=== PATIENT | female | born 1955 | race Two or more races ===

== ENCOUNTER 2024-07-14 18:03 | Inpatient (IN) | payer OTHER ==
[~2024-07-14] VITALS: Ht 165.1 cm; Wt 86.2 kg
[~2024-07-14 18:03] MED LIST: CEFADROXIL500 MG PO; CEFTIN250 MG PO; CELEBREX100 MG PO; OMEPRAZOLE20 MG PO; OMEPRAZOLE40 MG PO; PARAFON FORTE500 MG PO; PROTONIX40 MG PO; RANITIDINE HCL300 M1 PO; TRAMADOL HCL-AP1 TAB PO; ZANTAC150 MG PO
[2024-07-14] MEDS ORDERED: AMIODARONE HCL 50 MG/ML AMPUL IV ONE (18:30)
[2024-07-14] MEDS ORDERED: FUROsemide 40 MG/4 ML VIAL IV ONE (18:30)
[2024-07-14] MEDS ORDERED: IPRATROPIUM/ALBUTEROL SULFATE 3 ML AMPUL.NEB IH ONE (18:45)
[2024-07-14 18:54] LABS: HEMATOCRIT 43.5 % (36.0-45.00); HEMOGLOBIN 14.1 g/dL (12.0-15.00); MEAN CELL VOLUME 85.7 fL (80.00-100.00); MEAN CORPUSCULAR HEMOGLOBIN 27.9 pg (27.00-32.0); MEAN CORPUSCULAR HGB CONC 32.5 g/dl (32.0-36.0); PLATELET COUNT 267 K/uL (150-450); RED BLOOD COUNT 5.07 M/uL (4.00-6.00); RED CELL DISTRIBUTION WIDTH 14.9 % (11.5-14.5)
[2024-07-14] MEDS ORDERED: AMIODARONE HCL 900 MG in DEXTROSE 5 % IN WATER 500 ML IV SCH (19:00)
[2024-07-14 19:11] LABS: ABG PH 7.271 (7.35-7.45); ABG PO2 59.5 mmHg (80-100); ABG pCO2 53.3 mmHg (35-45); BASE EXCESS -3.6 mmol/l; SaO2 85.8 %; Tco2 25.6 mmol/l
[2024-07-14 19:12] LABS: allen test SATISFACTORY; mode ROOM AIR; o2 21 %; puncture site RADIAL RIGHT
[2024-07-14 19:15] LABS: INR 0.98; PARTIAL THROMBOPLASTIN TIME 23.8 SECONDS (22.0-34.0); PROTHROMBIN TIME 10.7 SECONDS (9.0-11.5)
[2024-07-14 19:19] LABS: BILIRUBIN TOTAL 0.24 mg/dL (0.3-1.2); CREATININE SERUM 0.96 mg/dL (0.55-1.02); GFR 58.15; GLOBULINA 4.1 G/DL (2.4-3.5); POTASSIUM 4.06 mEq/L (3.5-5.1); TOTAL PROTEIN 8.1 gm/dL (6.4-8.2)
[2024-07-14] MEDS ORDERED: ONDANSETRON HCL 2 MG/ML VIAL IV ONE (20:00)
[2024-07-14] MEDS ORDERED: PROPOFOL IV PUSH STA (20:04)
[2024-07-14] MEDS ORDERED: PIPERACILLIN/TAZOBACTAM SODIUM 3.375 GM in DEXTROSE 5 % IN WATER 100 ML IV ONE (20:15)
[2024-07-14 20:23] LABS: MAGNESIUM 2.1 mg/dL (1.8-2.4)
[2024-07-14 21:31] LABS: COVID-19 AG NEGATIVE (NEGATIVE)
[2024-07-14 21:32] LABS: INFLUENZA A AG NEGATIVE (NEGATIVE)
--- NOTE | 2024-07-14 22:01 | NUR ---
SE RECIBE PTE ALERTA Y ORIENTADA X3 LA CUAL LLEGA EN AMBULANCIA POR DIFICULTAD RESPIRATORIA. SATURANDO 84% CON N/C @ 4LT. PTE ES PASADA A CAMA EN AREA DE CRITICO EN DONDE SE CONECTA A MONITOR CARDIACO Y OXYMETRIA DE [place]. SE LE REALIZA EKG PARA QUE LO EVALUE EL DR RIVERS Y DR DONOHUE. SE CANALIZA A PTE POR PROTOCOLO DE AREA CRITICA, SE COLOCA H/L CON ANGIO #18 EN MANO IZQUIERDA POR EL CUAL SE LE COLOCA RAQUEL DE AMIODARONA PARA CORREGIR TAQUICARDIA VENTRICULAR Y SE LE COMIENZA DRIP DE AMIODARONA 900MG/500ML DE DW5 @ 33ML/HR POR LAS PRIMERAS 6 HORAS. SE PREPARA A PTE PARA ENTUBAR PTE ES ENTUBADA POR PERSONAL DE ANESTESIA ATEGAN A LAS ([id number]) CON TUBO 7.0. SE COMIENZA DRIP DE PROPOFOL PATO VEZ LA PRESION DE LA MISMA SE ESTABILIZA.
[2024-07-14 22:19] LABS: ABG PO2 271.2 mmHg (80-100); BASE EXCESS -5.7 mmol/l; BICARBONATE 26.6 mmol/l (23-25); SaO2 99.6 %; Tco2 29.3 mmol/l
[2024-07-14 22:43] LABS: ABG PH 7.094 (7.35-7.45); ABG pCO2 88.7 mmHg (35-45); allen test SATISFACTORY; mode MECHANI VENTILATOR; o2 100 %; puncture site RADIAL RIGHT
[2024-07-14 22:47] LABS: PH,URINE 5.5 (5.0-8.0); URINE APPEARANCE Clear; URINE BILIRRUBIN Negative (NEGATIVE); URINE BLOOD Small; URINE COLOR Yellow; URINE KETONE Negative (NEGATIVE); URINE LEUKOCYTE Negative; URINE NITRATE Negative; URINE UROBILINOGEN 0.2 E.U./dl
[2024-07-14 22:50] LABS: URINE BACTERIA 605.8 uL (0.0-1933); URINE EPITHELIAL CELLS 9.8 uL (0.0-38.8); URINE RBC 24.3 uL (0.0-20.8); URINE WBC 13.7 uL (0.0-23.2)
[2024-07-14 22:51] LABS: URINE CAST 0.73 uL (0.0-1.40); URINE GLUCOSE 500 MG/DL (NEGATIVE); URINE PROTEIN 100 (NEGATIVE)
[2024-07-15] MEDS ORDERED: IPRATROPIUM BROMIDE 0.5 MG/2.5 ML AMPUL.NEB IH SCH (01:18)
[2024-07-15] MEDS ORDERED: PANTOPRAZOLE SODIUM 40 MG/VIAL VIAL IV SCH (01:24)
[2024-07-15] MEDS ORDERED: ATORVASTATIN CALCIUM 40 MG TABLET PO SCH (01:25)
[2024-07-15] MEDS ORDERED: TICAGRELOR 90 MG TABLET PO SCH (01:26)
[2024-07-15] MEDS ORDERED: ENOXAPARIN SODIUM 80 MG/0.8 ML SYRINGE SUBCUTANEO SCH (01:27)
[2024-07-15] MEDS ORDERED: 0.9 % SODIUM CHLORIDE 1,000 ML IV SCH (01:30)
[2024-07-15] MEDS ORDERED: ACETAMINOPHEN 500 MG GEL..CAP PO PRN (01:30)
[2024-07-15] MEDS ORDERED: MEROPENEM 500 MG/VIAL VIAL IV SCH (02:00)
[2024-07-15] MEDS ORDERED: IPRATROPIUM BROMIDE 0.5 MG/2.5 ML AMPUL.NEB IH ONE (08:39)
[2024-07-15] MEDS ORDERED: PROPOFOL 100 ML IV SCH (10:45)
[2024-07-15 16:47] VITALS: BP 91/63; O2SAT 100
[2024-07-15] MEDS ORDERED: TICAGRELOR 90 MG TABLET PO ONE (16:58)
[2024-07-15 18:12] VITALS: BP 100/51; O2SAT 99
[2024-07-15 18:51] LABS: CHOL HDL RATIO 4.2 (0-5.0); TSH 1.24 uIU/mL (0.358-3.74)
[2024-07-15 20:44] VITALS: BP 96/56; O2SAT 99
[2024-07-15 22:30] VITALS: BP 97/62; O2SAT 99
[2024-07-15 23:00] VITALS: BP 121/69; O2SAT 100
[2024-07-16] VITALS (12 sets, daily range): BP systolic 101–130; BP diastolic 57–88; O2SAT 20–100
[2024-07-16 05:14] LABS: CHOL HDL RATIO 4.2 (0-5.0); TSH 2.54 uIU/mL (0.358-3.74)
[2024-07-16] MEDS ORDERED: NITROGLYCERIN IN 5 % DEXTROSE 50 MG/250 ML BOTTLE IV SCH (08:15)
[2024-07-16] MEDS ORDERED: NITROGLYCERIN IN 5 % DEXTROSE 250 ML IV SCH (08:30)
[2024-07-16 10:17] LABS: HEMOGLOBIN 11.3 g/dL (12.0-15.00); MEAN CELL VOLUME 82.8 fL (80.00-100.00); MEAN CORPUSCULAR HEMOGLOBIN 28.3 pg (27.00-32.0); MEAN CORPUSCULAR HGB CONC 34.2 g/dl (32.0-36.0); PLATELET COUNT 137 K/uL (150-450); RED BLOOD COUNT 3.99 M/uL (4.00-6.00); RED CELL DISTRIBUTION WIDTH 14.5 % (11.5-14.5)
[2024-07-16 10:48] LABS: ALBUMIN 2.9 gm/dL (3.4-5.0); BILIRUBIN TOTAL 0.54 mg/dL (0.3-1.2); CALCIUM 7.9 mg/dL (8.5-10.1); CREATININE SERUM 0.61 mg/dL (0.55-1.02); GFR 98.13; GLOBULINA 2.9 G/DL (2.4-3.5); POTASSIUM 3.38 mEq/L (3.5-5.1); TOTAL PROTEIN 5.8 gm/dL (6.4-8.2)
[2024-07-16] MEDS ORDERED: CHLORHEXIDINE GLUCONATE 15ML BRUSH KIT MM SCH (13:24)
[2024-07-16] MEDS ORDERED: POTASSIUM CHLORIDE IN WATER 40 MEQ/100 ML PIGGYBAG IV NR (14:00)
[2024-07-16 14:56] LABS: ABG PH 7.435 (7.35-7.45); ABG PO2 312.4 mmHg (80-100); ABG pCO2 35.4 mmHg (35-45); BASE EXCESS -0.4 mmol/l; BICARBONATE 23.3 mmol/l (23-25); SaO2 99.9 %; Tco2 24.3 mmol/l
[2024-07-16 14:58] LABS: allen test SATISFACTORY; mode MECHANI VENTILATOR; o2 100 %; puncture site RADIAL RIGHT
[2024-07-16 16:01] LABS: ABG PH 7.411 (7.35-7.45); ABG PO2 103.4 mmHg (80-100); ABG pCO2 38.9 mmHg (35-45); BASE EXCESS -0.2 mmol/l; BICARBONATE 24.2 mmol/l (23-25); Tco2 25.4 mmol/l
[2024-07-16] MEDS ORDERED: CARBOXYMETHYLCELL/GLYCERIN/PF 1 EACH DROPERETTE OP SCH (17:00)
[2024-07-16 18:36] LABS: allen test SATISFACTORY; mode MECHANI VENTILATOR; puncture site RADIAL RIGHT
[2024-07-16 18:39] LABS: o2 50 %
[2024-07-17] VITALS (14 sets, daily range): BP systolic 103–145; BP diastolic 60–97; O2SAT 98–100
[2024-07-17 08:44] LABS: ABG PH 7.396 (7.35-7.45); ABG PO2 159.8 mmHg (80-100); ABG pCO2 37.4 mmHg (35-45); BICARBONATE 22.4 mmol/l (23-25); SaO2 99.4 %; Tco2 23.6 mmol/l
[2024-07-17 13:12] LABS: allen test SATISFACTORY; mode MECHANI VENTILATOR; o2 40 %; puncture site RADIAL LEFT
[2024-07-18] VITALS (9 sets, daily range): BP systolic 97–155; BP diastolic 53–84; O2SAT 98–100
[2024-07-18] MEDS ORDERED: RACEPINEPHRINE HCL 0.5 ML AMPUL IH STA (11:09)
[2024-07-18 11:40] LABS: HEMATOCRIT 32.1 % (36.0-45.00); HEMOGLOBIN 11.1 g/dL (12.0-15.00); MEAN CELL VOLUME 82.5 fL (80.00-100.00); MEAN CORPUSCULAR HEMOGLOBIN 28.6 pg (27.00-32.0); MEAN CORPUSCULAR HGB CONC 34.6 g/dl (32.0-36.0); PLATELET COUNT 135 K/uL (150-450); RED BLOOD COUNT 3.89 M/uL (4.00-6.00); RED CELL DISTRIBUTION WIDTH 14.4 % (11.5-14.5)
[2024-07-18] MEDS ORDERED: PHENOL 177 ML BOTTLE MM PRN (12:00)
[2024-07-18 12:51] LABS: ALBUMIN 2.7 gm/dL (3.4-5.0); BILIRUBIN TOTAL 0.85 mg/dL (0.3-1.2); CREATININE SERUM 0.4 mg/dL (0.55-1.02); GFR 159.7; GLOBULINA 3.3 G/DL (2.4-3.5); POTASSIUM 3.63 mEq/L (3.5-5.1)
[2024-07-18 14:43] LABS: ABG PO2 138.1 mmHg (80-100); BASE EXCESS -0.2 mmol/l; BICARBONATE 24.2 mmol/l (23-25); SaO2 99.1 %; Tco2 25.4 mmol/l; allen test SATISFACTORY; o2 40 %; puncture site RADIAL RIGHT
[2024-07-18 14:44] LABS: mode MECHANI VENTILATOR
[2024-07-18 14:45] LABS: ABG PH 7.448 (7.35-7.45); ABG PO2 90.7 mmHg (80-100); ABG pCO2 34.2 mmHg (35-45); BASE EXCESS -0.2 mmol/l; BICARBONATE 23.1 mmol/l (23-25); SaO2 97.4 %; Tco2 24.2 mmol/l; allen test SATISFACTORY; mode NASAL CANNULA; o2 36 %; puncture site RADIAL LEFT
[2024-07-18 14:46] LABS: ABG PH 7.378 (7.35-7.45); ABG pCO2 42.9 mmHg (35-45); BASE EXCESS -0.6 mmol/l; SaO2 99.1 %
[2024-07-18 14:47] LABS: BICARBONATE 24.7 mmol/l (23-25); allen test SATISFACTORY; o2 40 %; puncture site RADIAL RIGHT
[2024-07-18 14:48] LABS: mode MECHANI VENTILATOR
[2024-07-18] MEDS ORDERED: CEFAZOLIN SODIUM 2,000 MG in 0.9 % SODIUM CHLORIDE 100 ML IV SCH (17:00)
[2024-07-19 04:00] VITALS: BP 124/58; O2SAT 99
[2024-07-19 07:30] VITALS: BP 112/91; O2SAT 100
[2024-07-19] MEDS ORDERED: SPIRONOLACTONE 25 MG TABLET PO SCH (09:00)
[2024-07-19] MEDS ORDERED: FUROsemide 20 MG/2 ML VIAL IV SCH (09:00)
[2024-07-19] MEDS ORDERED: CARVEDILOL 3.125 MG TABLET PO SCH (09:00)
[2024-07-19] MEDS ORDERED: CHLORHEXIDINE GLUCONATE 120 ML BOTTLE TOP ONE (10:24)
[2024-07-19 12:00] VITALS: BP 132/96; O2SAT 100
[2024-07-19] MEDS ORDERED: LACTOBACILLUS ACIDOPHILUS 1 CAP CAP PO SCH (13:00)
[2024-07-19 16:07] VITALS: BP 128/88; O2SAT 100
[2024-07-19 20:18] VITALS: BP 126/87; O2SAT 100
[2024-07-19] MEDS ORDERED: CLONAZEPAM 0.5 MG TABLET PO SCH (21:00)
[2024-07-19] MEDS ORDERED: LOPERAMIDE HCL 2 MG CAPSULE PO ONE (22:00)
[2024-07-19 23:14] VITALS: BP 97/76; O2SAT 98
[2024-07-20 04:00] VITALS: BP 118/60; O2SAT 97
[2024-07-20 08:00] VITALS: BP 148/83; O2SAT 98
[2024-07-20 12:00] VITALS: BP 116/86; O2SAT 100
[2024-07-20 16:00] VITALS: BP 112/71; O2SAT 97
[2024-07-20 20:00] VITALS: BP 150/75; O2SAT 98
[2024-07-20 23:31] VITALS: BP 108/82; O2SAT 99
[2024-07-21 03:59] VITALS: BP 107/62; O2SAT 98
[2024-07-21 12:00] VITALS: BP 126/70; O2SAT 98
[2024-07-21 15:57] VITALS: BP 113/78; O2SAT 98
[2024-07-22] VITALS (7 sets, daily range): BP systolic 99–126; BP diastolic 56–79; O2SAT 94–99
[2024-07-23] VITALS (9 sets, daily range): BP systolic 104–108; BP diastolic 58–70; O2SAT 93–98
[2024-07-24] VITALS (7 sets, daily range): BP systolic 92–115; BP diastolic 58–76; O2SAT 93–100
[2024-07-24 07:03] LABS: BASO % 0.4 % (0.1-1.2); EOS # 0.18 (0.04-0.54); EOS % 2.3 % (0.7-7.0); HEMATOCRIT 38.2 % (34.1-44.9); HEMOGLOBIN 12.7 g/dL (11.2-15.7); LYMPH # 2.41 (1.18-3.74); LYMPH % 31.1 % (19.3-53.1); MEAN CORPUSCULAR HEMOGLOBIN 27.1 pg (25.6-32.2); MONO # 0.75 (0.24-0.82); MONO % 9.7 % (4.7-12.5); NEUT # 4.34 (1.56-6.13); PLATELET COUNT 276 K/uL (163-369); RED BLOOD COUNT 4.69 M/uL (3.93-5.22); RED CELL DISTRIBUTION WIDTH 13.1 % (11.6-14.4)
[2024-07-24 07:40] LABS: CALCIUM 8.6 mg/dL (8.5-10.1); CREATININE SERUM 0.6 mg/dL (0.55-1.02); GFR 100.02
[2024-07-24] MEDS ORDERED: CEFAZOLIN SODIUM 1,000 MG VIAL ONE (08:12)
[2024-07-24] MEDS ORDERED: ORPHENADRINE CITRATE 30 MG/ML AMPUL IV STA (08:22)
[2024-07-24 08:23] LABS: POTASSIUM 2.87 mEq/L (3.5-5.1)
[2024-07-24 14:30] LABS: ABG PH 7.493 (7.35-7.45); ABG PO2 77.4 mmHg (80-100); ABG pCO2 42.6 mmHg (35-45); BASE EXCESS 7.8 mmol/l; BICARBONATE 31.9 mmol/l (23-25); SaO2 96.7 %; Tco2 33.2 mmol/l; allen test SATISFACTORY; mode ROOM AIR; o2 21 %; puncture site RADIAL RIGHT
[2024-07-24] MEDS ORDERED: ORPHENADRINE CITRATE 30 MG/ML AMPUL IV PRN (21:00)
[2024-07-25 01:48] VITALS: O2SAT 94
[2024-07-25 02:34] VITALS: BP 100/68; O2SAT 95
[2024-07-25 08:24] VITALS: BP 90/60
[2024-07-25 13:08] VITALS: O2SAT 90
[2024-07-25] MEDS ORDERED: POTASSIUM CHLORIDE IN WATER 100 ML IV NR (16:15)
[2024-07-25] MEDS ORDERED: MAGNESIUM SULFATE IN WATER 50 ML IV NR (16:15)
[2024-07-25 17:43] VITALS: BP 104/60
[2024-07-25 21:00] VITALS: O2SAT 90
[2024-07-26 01:47] VITALS: BP 99/62; O2SAT 94
[2024-07-26 03:18] VITALS: O2SAT 95
[2024-07-26 05:44] VITALS: O2SAT 97
[2024-07-26 07:46] LABS: CALCIUM 8.7 mg/dL (8.5-10.1); CREATININE SERUM 0.64 mg/dL (0.55-1.02); GFR 92.84; POTASSIUM 3.35 mEq/L (3.5-5.1)
[2024-07-26 08:34] VITALS: BP 103/60; O2SAT 96
[2024-07-26] MEDS ORDERED: CARVEDILOL3.125 MG PO (09:33)
[2024-07-26] MEDS ORDERED: LIPITOR40 M1 PO (09:33)
[2024-07-26] MEDS ORDERED: BRILINTA90 MG PO (09:33)
[2024-07-26] MEDS ORDERED: SPIRONOLACTONE25 MG PO (09:34)
[2024-07-26] MEDS ORDERED: LASIX20 MG PO (09:34)
[2024-07-26] MEDS ORDERED: INTESTINEX680 M1 PO (09:37)
[2024-07-26] MEDS ORDERED: FARXIGA10 MG PO (09:41)
[2024-07-26] MEDS ORDERED: ENTRESTO 24 MG1 EACH PO (09:43)
[2024-07-26] MEDS ORDERED: ONDANSETRON HCL 2 MG/ML VIAL IV PRN (09:45)
== END 2024-07-26 13:24 | disposition home or self-care (01) | DRG 207 ==
LOC: ER 18:03 → ICU 07-15 02:42 → ICU-2 07-15 02:42 → ICU 07-16 04:45 → MEDJ 07-21 18:48
PROVIDERS: Emergency Medicine; General Practice; Internal Medicine; ADMIT Internal Medicine; ATTEND Internal Medicine
PROC: 5A1955Z Respiratory Ventilation, Greater than 96 Consecutive Hours (ICD-10-PCS; principal; 2024-07-14)
PROC: 0BH17EZ Insertion of Endotracheal Airway into Trachea, Via Natural or Artificial Opening (ICD-10-PCS; 2024-07-14)
PROC: BW24ZZZ Computerized Tomography (CT Scan) of Chest and Abdomen (ICD-10-PCS; 2024-07-14)
PROC: BW28ZZZ Computerized Tomography (CT Scan) of Head (ICD-10-PCS; 2024-07-14)
PROC: BW21ZZZ Computerized Tomography (CT Scan) of Abdomen and Pelvis (ICD-10-PCS; 2024-07-14)
PROC: B24BZZZ Ultrasonography of Heart with Aorta (ICD-10-PCS; 2024-07-17)
PROC: 02HV33Z Insertion of Infusion Device into Superior Vena Cava, Percutaneous Approach (ICD-10-PCS; 2024-07-17)
PROC: 4A12X4Z Monitoring of Cardiac Electrical Activity, External Approach (ICD-10-PCS; 2024-07-21)
PROC: B54NZZZ Ultrasonography of Left Upper Extremity Veins (ICD-10-PCS; 2024-07-24)
PROC: B34JZZZ Ultrasonography of Left Upper Extremity Arteries (ICD-10-PCS; 2024-07-24)
PROC: B54CZZZ Ultrasonography of Left Lower Extremity Veins (ICD-10-PCS; 2024-07-24)
PROC: B24BZZZ Ultrasonography of Heart with Aorta (ICD-10-PCS; 2024-07-25)
DX: J96.01 Acute respiratory failure with hypoxia (principal); I21.4 Non-ST elevation (NSTEMI) myocardial infarction; J15.211 Pneumonia due to Methicillin susceptible Staphylococcus aureus; J69.0 Pneumonitis due to inhalation of food and vomit; I47.20 Ventricular tachycardia, unspecified; I50.20 Unspecified systolic (congestive) heart failure; J44.9 Chronic obstructive pulmonary disease, unspecified; I11.0 Hypertensive heart disease with heart failure; E87.6 Hypokalemia; F43.23 Adjustment disorder with mixed anxiety and depressed mood; I87.2 Venous insufficiency (chronic) (peripheral)

== ENCOUNTER 2024-11-17 09:37 | Outpatient (CLI) | payer OTHER ==
[~2024-11-17 09:37] MED LIST changes: +BRILINTA90 MG PO; +CARVEDILOL3.125 MG PO; +ENTRESTO 24 MG1 EACH PO; +FARXIGA10 MG PO; +INTESTINEX680 M1 PO; +LASIX20 MG PO; +LIPITOR40 M1 PO; +SPIRONOLACTONE25 MG PO
== END 2024-11-17 09:47 | disposition home or self-care (01) ==
LOC: NUCLEAR 09:37
PROVIDERS: ATTEND Internal Medicine Cardiovascular Disease
DX: I42.0 Dilated cardiomyopathy (principal)